=== PATIENT | female | born 1945 | race Caucasian/White ===

== ENCOUNTER 2018-03-10 00:48 | Observation (INO) | payer MEDICARE ==
[2018-03-10 04:03] VITALS: BMI 25.4
[2018-03-10] MEDS ORDERED: IPRATROPIUM-ALBUTEROL 3 ML NEB INHALATION PRN (04:36)
[2018-03-10] MEDS ORDERED: INFLUENZA VACCINE (6 MOS+) 60 MCG/0.5 ML SYRINGE IM ONE (04:38)
[2018-03-10] MEDS ORDERED: HEPARIN SODIUM,PORCINE 5,000 UNIT/ML 1 ML VIAL IV PRN (04:39)
[2018-03-10] MEDS ORDERED: HEPARIN SODIUM,PORCINE 5,000 UNIT/ML 1 ML VIAL IV ONE (04:39)
[2018-03-10] MEDS ORDERED: HEPARIN SOD,PORK IN 0.45% NACL 25,000 UNIT in 0.45% NACL 1 500ML.BAG IV SCH (04:45)
[2018-03-10] MEDS: HYDROcodone/APAP 5-325MG 1 EACH TAB PO PRN ×2 (05:29→19:52)
[2018-03-10 05:50] LABS: Anisocytosis Slight; Basophils % (A) 0 %; Eosinophils % (A) 0 %; HCT 31.4 % (34.0-46.0); HGB 10.3 gm/dL (11.4-16.0); Lymphocytes # (A) 0.5 k/uL (1.0-4.8); Lymphocytes % (A) 6 %; MCH 25.1 pg (25.0-35.0); MCHC 32.9 g/dL (31.0-37.0); MCV 76.1 fL (80.0-100.0); Microcytosis Slight; Monocytes # (A) 0.1 k/uL (0-1.0); Monocytes % (A) 1 %; Neutrophils # (A) 7.8 k/uL (1.3-7.7); Neutrophils % (A) 92 %; Platelet Count 264 k/uL (150-450); RBC 4.12 m/uL (3.80-5.40); RDW 16.3 % (11.5-15.5); WBC 8.5 k/uL (3.8-10.6)
[2018-03-10] MEDS ORDERED: LEVOFLOXACIN 500MG-D5W PMX 500 MG in DEXTROSE/WATER 1 100ML.BAG IVPB SCH ×2 (06:00→09:00)
[2018-03-10 06:01] LABS: Albumin 3.9 g/dL (3.5-5.0); Calcium 9.5 mg/dL (8.4-10.2); Potassium 4.2 mmol/L (3.5-5.1); Total Bilirubin 0.3 mg/dL (0.2-1.3); Total Protein 6.7 g/dL (6.3-8.2)
[2018-03-10 06:11] LABS: INR 1.1 (<1.2); Prothrombin Time 10.3 sec (9.0-12.0)
[2018-03-10 06:20] LABS: Creatine Kinase 208 U/L (30-135)
[2018-03-10 06:32] LABS: Creatine Kinase MB 1.3 ng/mL (0.0-2.4); Troponin I <0.012 ng/mL (0.000-0.034)
[2018-03-10 06:43] LABS: Glucose,Whole Blood 176 mg/dL (75-99)
[2018-03-10] MEDS: IPRATROPIUM-ALBUTEROL 3 ML NEB INHALATION SCH ×4 (07:29→18:53)
[2018-03-10] MEDS: methylPREDNISolone SOD SUCCI 125 MG/2 ML VIAL IV SCH ×2 (09:53→16:49)
[2018-03-10] MEDS: INSULIN ASPART 100 UNIT/ML 1 ML 10 ML VIAL SQ SCH ×4 (09:53→20:08)
--- NOTE | 2018-03-10 11:20 | P.CRDCN ---
History of Present Illness History of present illness: This is a pleasant 72-year-old female past medical history significant for hypertension, dyslipidemia, COPD. She denies history of coronary artery disease. She follows with Dr. Givens in the office. We have asked him in consultation for symptoms of chest pain. She was sent in from [facility] for symptoms of shortness of breath and chest discomfort. She states yesterday she was taking a shower and her daughters were helping her after getting out of the shower and sitting down she started feeling pain around her chest and the lower thoracic region the base of her ribs on both sides as well as in the middle of her back. She states the pain feels like someone is stabbing her in the back and it's radiating through to the front and then wrapping around her torso. She also felt acutely short of breath. She has oxygen at home that she wears only at night. She attempted to get her oxygen tank from her bedroom indicative milligrams she could sit down but it was too much work for her she was unable to drink the tank into her living room. She denies associated dizziness, nausea, vomiting or palpitations. EKG reveals sinus mechanism with first degree AVB. Chest xray obtained at [place] reveals blunted costophrenic angles with cardiomegaly and no acute cardiopulmonary process. Laboratory data reviewed, WBC 8.5, hgb 10.3, plt 264, sodium 142, potassium 4.2 , creatinine 0.95, cardiac enzymes negative x2, NTproBNP 200. Recent Lexiscan stress test obtained in the office 09/2017 was negative for reversible cardiac ischemia. At the time of my exam: CONSTITUTIONAL: Denies fever. Denies chills. EYES: Denies blurred vision. Denies vision changes. Denies eye pain. EARS, NOSE, MOUTH & THROAT: Denies headache. Denies sore throat. Denies ear pain. CARDIOVASCULAR: Denies chest pain. Complains of shortness of breath. Denies orthopnea. Denies PND. Denies palpitations. RESPIRATORY: Denies cough. GASTROINTESTINAL: Denies abdominal pain. Denies diarrhea. Denies constipation. Denies nausea. Denies vomiting. MUSCULOSKELETAL: Denies myalgias. INTEGUMENTARY: Denies pruitis. Denies rash. NEUROLOGIC: Denies numbness. Denies tingling. Denies weakness. PSYCHIATRIC: Denies anxiety. Denies depression. ENDOCRINE: Denies fatigue. Denies weight change. Denies polydipsia. Denies polyurina. GENITOURINARY: Denies burning, hematuria or urgency with micturation. HEMATOLOGIC: Denies history of anemia. Denies bleeding. Blood pressure 93/60 heart rate 96 afebrile maintaining oxygen saturation on nasal cannula GENERAL: This is a 72-year-old female in no apparent distress at the time of my examination. HEENT: Head is atraumatic, normocephalic. Pupils are equal, round. Sclerae anicteric. Conjunctivae are clear. Mucous membranes of the mouth are moist. Neck is supple. There is no jugular venous distention. No carotid bruit is heard. LUNGS: Expiratory wheezes noted throughout, no rales or rhonchi. No chest wall tenderness is noted on palpation or with deep breathing. HEART: Regular rate and rhythm without murmurs, rubs or gallops. S1 and S2 heard. ABDOMEN: Soft, nontender. Bowel sounds are heard. No organomegaly noted. EXTREMITIES: No evidence of peripheral edema and no calf tenderness noted. VASCULAR: Radial and dorsalis pedis pulses palpated, no evidence of clubbing. NEUROLOGIC: Patient is awake, alert and oriented x3. ASSESSMENT Chest pain, atypical with shortness of breath. Recent stress test in the office no evidence of reversible cardiac ischemia. COPD Hypertension Dyslipidemia PLAN Continue to obtain serial cardiac enzymes to rule out an acute event. Obtain 2-D echocardiogram and Doppler study to assess cardiac structure and function Ongoing medical management. Symptoms seem related to an exacerbation of chronic COPD and not angina. Follow-up with Dr. Givens upon discharge. Nurse Practitioner note has been reviewed, I agree with a documented findings and plan of care. Patient was seen and examined. Past Medical History Past Medical History: Asthma, Cancer, COPD, CVA/TIA, Deep Vein Thrombosis (DVT) , GERD/Reflux, Hyperlipidemia, Hypertension, Pneumonia Additional Past Medical History / Comment(s): 2004 CVA, chronic back pain, urinary incontinence, pt uses 2Lnc at [facility], per pt DVT in left leg in 2004, anemia History of Any Multi-Drug Resistant Organisms: None Reported Past Surgical History: Section, Cholecystectomy, Tonsillectomy, Tubal Ligation Additional Past Surgical History / Comment(s): removal of skin ca on nose, breast bx, left wrist surg with hardware, right ankle fx, right hip ORIF Past Anesthesia/Blood Transfusion Reactions: No Reported Reaction Past Psychological History: Depression Smoking Status: Never smoker Past Alcohol Use History: None Reported Past Drug Use History: None Reported - Past Family History Father Family Medical History: Myocardial Infarction ([place]) Additional Family Medical History / Comment(s): at age 50 from [place] Mother Family Medical History: Cancer Medications and Allergies Home Medications Medication Instructions Recorded Confirmed Type Atorvastatin [Lipitor] 20 mg PO HS 03/10/18 03/10/18 History Ergocalciferol (Vitamin D2) 50,000 unit PO WEEKLY 03/10/18 03/10/18 History [Drisdol] Hydrochlorothiazide [Hydrodiuril] 50 mg PO DAILY 03/10/18 03/10/18 History Montelukast [Singulair] 10 mg PO HS 03/10/18 03/10/18 History Omeprazole [PriLOSEC] 20 mg PO AC-BRKFST 03/10/18 03/10/18 History Oxybutynin Xl [Ditropan XL] 5 mg PO DAILY 03/10/18 03/10/18 History Allergies Allergy/AdvReac Type Severity Reaction Status Date / Time aspirin AdvReac Intermediate Dyspnea Verified 03/10/18 09:35 grass pollen AdvReac Dyspnea Verified 03/10/18 09:35 ibuprofen [From Motrin] AdvReac Dyspnea Verified 03/10/18 09:35 mold AdvReac Dyspnea Verified 03/10/18 09:35 orange AdvReac Dyspnea Verified 03/10/18 09:35 wheat AdvReac Rash/Hives Verified 03/10/18 09:35 Physical Exam Vitals: Vital Signs Temp Pulse Pulse Resp BP Pulse Ox 03/10/18 07:43 96 03/10/18 07:33 100 95 03/10/18 07:20 97.9 F 96 18 93/60 97 03/10/18 04:00 18 03/10/18 03:29 98.3 F 101 H 16 121/79 97 Intake and Output 03/09/18 03/10/18 03/10/18 22:59 06:59 14:59 Other: Voiding Method Toilet # Voids 3 Weight 58.9 kg Results 03/10/18 05:31 03/10/18 05:31 Cardiac Enzymes 03/10/18 03/10/18 03/10/18 Range/Units 05:31 05:31 05:31 WBC 8.5 (3.8-10.6) k/uL RBC 4.12 (3.80-5.40) m/uL Hgb 10.3 L (11.4-16.0) gm/dL Hct 31.4 L (34.0-46.0) % MCV 76.1 L (80.0-100.0) fL MCH 25.1 (25.0-35.0) pg MCHC 32.9 (31.0-37.0) g/dL RDW 16.3 H (11.5-15.5) % Plt Count 264 (150-450) k/uL Neutrophils % 92 % Lymphocytes % 6 % Monocytes % 1 % Eosinophils % 0 % Basophils % 0 % Neutrophils # 7.8 H (1.3-7.7) k/uL Lymphocytes # 0.5 L (1.0-4.8) k/uL Monocytes # 0.1 (0-1.0) k/uL Eosinophils # 0.0 (0-0.7) k/uL Basophils # 0.0 (0-0.2) k/uL Anisocytosis Slight Microcytosis Slight PT (9.0-12.0) sec INR (<1.2) APTT (22.0-30.0) sec Sodium 142 (137-145) mmol/L Potassium 4.2 (3.5-5.1) mmol/L Chloride 106 (98-107) mmol/L Carbon Dioxide 26 (22-30) mmol/L Anion Gap 10 mmol/L BUN 15 (7-17) mg/dL Creatinine 0.95 (0.52-1.04) mg/dL Est GFR (CKD-EPI)AfAm 70 (>60 ml/min/1.73 sqM) Est GFR (CKD-EPI)NonAf 60 (>60 ml/min/1.73 sqM) Glucose 153 H (74-99) mg/dL POC Glucose (mg/dL) (75-99) mg/dL POC Glu Fuller Brush Man ID Calcium 9.5 (8.4-10.2) mg/dL Total Bilirubin 0.3 (0.2-1.3) mg/dL AST 20 (14-36) U/L ALT 23 (9-52) U/L Alkaline Phosphatase 90 (38-126) U/L Total Creatine Kinase 208 H (30-135) U/L CK-MB (CK-2) 1.3 (0.0-2.4) ng/mL CK-MB (CK-2) Rel Index 0.6 Troponin I <0.012 (0.000-0.034) ng/mL Total Protein 6.7 (6.3-8.2) g/dL Albumin 3.9 (3.5-5.0) g/dL 03/10/18 03/10/18 Range/Units 05:31 06:39 WBC (3.8-10.6) k/uL RBC (3.80-5.40) m/uL Hgb (11.4-16.0) gm/dL Hct (34.0-46.0) % MCV (80.0-100.0) fL MCH (25.0-35.0) pg MCHC (31.0-37.0) g/dL RDW (11.5-15.5) % Plt Count (150-450) k/uL Neutrophils % % Lymphocytes % % Monocytes % % Eosinophils % % Basophils % % Neutrophils # (1.3-7.7) k/uL Lymphocytes # (1.0-4.8) k/uL Monocytes # (0-1.0) k/uL Eosinophils # (0-0.7) k/uL Basophils # (0-0.2) k/uL Anisocytosis Microcytosis PT 10.3 (9.0-12.0) sec INR 1.1 (<1.2) APTT 31.0 H (22.0-30.0) sec Sodium (137-145) mmol/L Potassium (3.5-5.1) mmol/L Chloride (98-107) mmol/L Carbon Dioxide (22-30) mmol/L Anion Gap mmol/L BUN (7-17) mg/dL Creatinine (0.52-1.04) mg/dL Est GFR (CKD-EPI)AfAm (>60 ml/min/1.73 sqM) Est GFR (CKD-EPI)NonAf (>60 ml/min/1.73 sqM) Glucose (74-99) mg/dL POC Glucose (mg/dL) 176 H (75-99) mg/dL POC Glu Fuller Brush Man ID Lynnette Luque Calcium (8.4-10.2) mg/dL Total Bilirubin (0.2-1.3) mg/dL AST (14-36) U/L ALT (9-52) U/L Alkaline Phosphatase (38-126) U/L Total Creatine Kinase (30-135) U/L CK-MB (CK-2) (0.0-2.4) ng/mL CK-MB (CK-2) Rel Index Troponin I (0.000-0.034) ng/mL Total Protein (6.3-8.2) g/dL Albumin (3.5-5.0) g/dL Coagulation 03/10/18 Range/Units 05:31 PT 10.3 (9.0-12.0) sec APTT 31.0 H (22.0-30.0) sec CBC 03/10/18 Range/Units 05:31 WBC 8.5 (3.8-10.6) k/uL RBC 4.12 (3.80-5.40) m/uL Hgb 10.3 L (11.4-16.0) gm/dL Hct 31.4 L (34.0-46.0) % Plt Count 264 (150-450) k/uL Comprehensive Metabolic Panel 03/10/18 Range/Units 05:31 Sodium 142 (137-145) mmol/L Potassium 4.2 (3.5-5.1) mmol/L Chloride 106 (98-107) mmol/L Carbon Dioxide 26 (22-30) mmol/L BUN 15 (7-17) mg/dL Creatinine 0.95 (0.52-1.04) mg/dL Glucose 153 H (74-99) mg/dL Calcium 9.5 (8.4-10.2) mg/dL AST 20 (14-36) U/L ALT 23 (9-52) U/L Alkaline Phosphatase 90 (38-126) U/L Total Protein 6.7 (6.3-8.2) g/dL Albumin 3.9 (3.5-5.0) g/dL Current Medications Generic Name Dose Route Start Last Admin Trade Name Freq PRN Reason Stop Dose Admin Hydrocodone Bitart/Acetaminophen 1 each 03/10/18 04:37 03/10/18 05:29 [place] 5-325 PO 1 each Q6HR PRN Administration Pain Albuterol/Ipratropium 3 ml 03/10/18 08:00 03/10/18 07:29 Duoneb 0.5 Mg-3 Mg/3 Ml Soln INHALATION 3 ml RT-QID AV Administration Albuterol/Ipratropium 3 ml 03/10/18 04:36 Duoneb 0.5 Mg-3 Mg/3 Ml Soln INHALATION RT-Q2H PRN Shortness Of Breath Or Wheezing Heparin Sodium (Porcine) 0 unit 03/10/18 04:39 Heparin IV PER PROTOCOL PRN Low PTT Protocol Levofloxacin 500 mg/ IV 100 mls @ 100 mls/hr 03/10/18 09:00 Solution IVPB Q24H [facility] Insulin Aspart 0 unit 03/10/18 07:30 Novolog SQ ACHS [facility] Protocol Methylprednisolone Sodium Succinate 60 mg 03/10/18 08:00 Solu-Medrol IV Q8HR [facility] Intake and Output 03/09/18 03/10/18 03/10/18 22:59 06:59 14:59 Other: Voiding Method Toilet # Voids 3 Weight 58.9 kg 03/10/18 05:31 03/10/18 05:31
--- NOTE | 2018-03-10 11:27 | ECHOF ---
Referral Reason:sob MEASUREMENTS -------- HEIGHT: 152.4 cm WEIGHT: 58.5 kg BP: 93/60 RVIDd: 2.1 cm (< 3.3) IVSd: 0.8 cm (0.6 - 1.1) LVIDd: 3.2 cm (3.9 - 5.3) LVPWd: 1.1 cm (0.6 - 1.1) IVSs: 1.9 cm LVIDs: 1.9 cm LVPWs: 1.4 cm Ao Diam: 2.8 cm (2.0 - 3.7) AV Cusp: 1.3 cm (1.5 - 2.6) LA Diam: 3.6 cm (2.7 - 3.8) MV E Wiliam: 1.03 m/s MV DecT: 89 ms MV A Wiliam: 0.30 m/s MV E/A Ratio: 3.43 AV maxP.64 mmHg AV meanP.12 mmHg RAP: 5.00 mmHg RVSP: 12.42 mmHg FINDINGS -------- Sinus rhythm. This was a technically difficult study with suboptimal views. The left ventricular size is normal. Left ventricular wall thickness is normal. Overall left vent ricular systolic function is normal with, an EF between 55 - 60 %. The right ventricular wall thickness is normal measuring < 5mm. The left atrium is normal in size. The right atrium is normal in size. Lumason used There is mild aortic valve sclerosis. The mitral valve leaflets are mildly thickened. Mild mitral regurgitation is present. Mild tricuspid regurgitation present. There is no evidence of pulmonary hypertension. The right v entricular systolic pressure, as measured by Doppler, is 12.42mmHg. The pulmonic valve was not well visualized. The aortic root size is normal. There is no pericardial effusion. CONCLUSIONS -------- 1. Sinus rhythm. 2. This was a technically difficult study with suboptimal views. 3. The left ventricular size is normal. 4. Left ventricular wall thickness is normal. 5. Overall left ventricular systolic function is normal with, an EF between 55 - 60 %. 6. The left atrium is normal in size. 7. Lumason used 8. There is mild aortic valve sclerosis. 9. The mitral valve leaflets are mildly thickened. 10. Mild mitral regurgitation is present. 11. Mild tricuspid regurgitation present. 12. There is no evidence of pulmonary hypertension. 13. The pulmonic valve was not well visualized. 14. The aortic root size is normal. 15. There is no pericardial effusion. MEDICAL REIMBURSEMENT SPECIALIST: Tonie Bravo RDCS
[2018-03-10 11:55] LABS: Glucose,Whole Blood 170 mg/dL (75-99)
[2018-03-10 12:52] LABS: Creatine Kinase 229 U/L (30-135)
[2018-03-10 13:05] LABS: Creatine Kinase MB 1.3 ng/mL (0.0-2.4); Troponin I <0.012 ng/mL (0.000-0.034)
--- NOTE | 2018-03-10 13:18 | P.CNPUL ---
History of Present Illness Consult date: 03/10/18 Reason for consult: chest pain, COPD History of present illness: A pleasant 70-year-old female patient who has been followed up without pulmonary services for COPD and she is seen at the [place] office by Dr. Dot blevins. The patient also has history of hypertension and hyperlipidemia. No known history of coronary artery disease. The patient came in yesterday because of increased shortness of breath, wheezing and chest pain. The pain was rather nonspecific across her anterior chest lower chest and the back. 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 She was having some increased dyspnea wheezing. Her symptoms were noted especially with activity and exertion. No pleurisy. No hemoptysis. No reported fever chills or night sweats. The patient's pain was in the front and in the mid lower thoracic spine. She reported stabbing sensation. Noted the patient has COPD. She is oxygen dependent only at nighttime. She has been using a combination of budesonide on Pulmicort neb last treatment twice a day. Her recent Lexiscan stress test that was done and a cardiology office in September 2017 was negative for any reversible ischemia. Her renal function with a creatinine of 0.95. 2 sets of troponins of been negative. BNP level was 200. Hemoglobin was attempted 0.3 with a white cell count of 8.5. Chest x-ray that was done [facility] showed some mild cardiomegaly and there was no acute cardio pulmonary process. The patient is hemodynamically stable and she is currently resting comfortably in bed. Review of Systems Constitutional: Denies chills, Denies fever Eyes: denies blurred vision, denies bulging eye, denies decreased vision Ears: bilateral: decreased hearing, deny: ear discharge, earache, tinnitus Ears, nose, mouth and throat: Denies headache, Denies sore throat Cardiovascular: Reports chest pain, Reports decreased exercise tolerance Respiratory: Reports cough, Reports dyspnea, Reports wheezing Gastrointestinal: Denies abdominal pain, Denies diarrhea, Denies nausea, Denies vomiting Genitourinary: Denies dysuria, Denies hematuria Menstruation: Reports as per HPI Musculoskeletal: absent: ankle pain, ankle stiffness, ankle swelling Integumentary: Denies pruritus, Denies rash Neurological: Denies numbness, Denies weakness Psychiatric: Reports as per HPI Endocrine: Reports as per HPI Hematologic/Lymphatic: Reports as per HPI Allergic/Immunologic: Reports as per HPI Past Medical History Past Medical History: Asthma, Cancer, COPD, CVA/TIA, Deep Vein Thrombosis (DVT) , GERD/Reflux, Hyperlipidemia, Hypertension, Pneumonia Additional Past Medical History / Comment(s): COPD, bronchial asthma, previous history of CVA 2004, hypertension, hyperlipidemia, remote history of a left lower extremity DVT in 2004, chronic anemia, urinary incontinence, chronic back pain, osteoporosis, acid reflux, chronic hypoxic respiratory failure patient uses oxygen only overnight. History of Any Multi-Drug Resistant Organisms: None Reported Past Surgical History: Section, Cholecystectomy, Tonsillectomy, Tubal Ligation Additional Past Surgical History / Comment(s): removal of skin ca on nose, breast bx, left wrist surg with hardware, right ankle fx, right hip ORIF Past Anesthesia/Blood Transfusion Reactions: No Reported Reaction Past Psychological History: Depression Smoking Status: Never smoker Past Alcohol Use History: None Reported Past Drug Use History: None Reported - Past Family History Father Family Medical History: Myocardial Infarction ([place]) Additional Family Medical History / Comment(s): at age 50 from [place] Mother Family Medical History: Cancer Medications and Allergies Home Medications Medication Instructions Recorded Confirmed Type Atorvastatin [Lipitor] 20 mg PO HS 03/10/18 03/10/18 History Ergocalciferol (Vitamin D2) 50,000 unit PO WEEKLY 03/10/18 03/10/18 History [Drisdol] Hydrochlorothiazide [Hydrodiuril] 50 mg PO DAILY 03/10/18 03/10/18 History Montelukast [Singulair] 10 mg PO HS 03/10/18 03/10/18 History Omeprazole [PriLOSEC] 20 mg PO AC-BRKFST 03/10/18 03/10/18 History Oxybutynin Xl [Ditropan XL] 5 mg PO DAILY 03/10/18 03/10/18 History Allergies Allergy/AdvReac Type Severity Reaction Status Date / Time aspirin AdvReac Intermediate Dyspnea Verified 03/10/18 09:35 grass pollen AdvReac Dyspnea Verified 03/10/18 09:35 ibuprofen [From Motrin] AdvReac Dyspnea Verified 03/10/18 09:35 mold AdvReac Dyspnea Verified 03/10/18 09:35 orange AdvReac Dyspnea Verified 03/10/18 09:35 wheat AdvReac Rash/Hives Verified 03/10/18 09:35 Physical Exam Vitals: Vital Signs Temp Pulse Pulse Resp BP Pulse Ox 03/10/18 11:30 97.7 F 106 H 18 109/71 96 03/10/18 10:47 104 H 03/10/18 10:36 100 03/10/18 07:43 96 03/10/18 07:33 100 95 03/10/18 07:20 97.9 F 96 18 93/60 97 03/10/18 04:00 18 03/10/18 03:29 98.3 F 101 H 16 121/79 97 Intake and Output 03/09/18 03/10/18 03/10/18 22:59 06:59 14:59 Other: Voiding Method Toilet Toilet # Voids 3 Weight 58.9 kg Appearance she is calm comfortable likely distress Head exam was generally normal. There was no scleral icterus or corneal arcus. Mucous membranes were moist. Neck was supple and without jugular venous distension, thyromegaly, or carotid bruits. Carotids were easily palpable bilaterally. There was no adenopathy. Lungs sounds are diminished bilaterally along with scattered expiratory wheezes throughout the lung gaytan bilaterally and prolongation of expiratory phase of breathing Cardiac exam revealed the PMI to be normally situated and sized. The rhythm was regular and no extrasystoles were noted during several minutes of auscultation. The first and second heart sounds were normal and physiologic splitting of the second heart sound was noted. There were no murmurs, rubs, clicks, or gallops. Abdominal exam revealed normal bowel sounds. The abdomen was soft, non-tender, and without masses, organomegaly, or appreciable enlargement of the abdominal aorta. Examination of the extremities revealed easily palpable radial, femoral and pedal pulses. There was no cyanosis, clubbing or edema. Examination of the skin revealed no evidence of significant rashes, suspicious appearing nevi or other concerning lesions. Neurologically she is awake and alert and there is no focal neurological deficit. Results - Laboratory Findings CBC and BMP: 03/10/18 05:31 12 05:31 PT/INR, D-dimer PT 10.3 sec (9.0-12.0) 03/10/18 05:31 INR 1.1 (<1.2) 03/10/18 05:31 Abnormal lab findings: Abnormal Labs 03/10/18 03/10/18 03/10/18 05:31 05:31 05:31 Hgb 10.3 L Hct 31.4 L MCV 76.1 L RDW 16.3 H Neutrophils # 7.8 H Lymphocytes # 0.5 L APTT Glucose 153 H POC Glucose (mg/dL) Total Creatine Kinase 208 H 03/10/18 03/10/18 03/10/18 05:31 06:39 11:51 Hgb Hct MCV RDW Neutrophils # Lymphocytes # APTT 31.0 H Glucose POC Glucose (mg/dL) 176 H 170 H Total Creatine Kinase 03/10/18 12:12 Hgb Hct MCV RDW Neutrophils # Lymphocytes # APTT Glucose POC Glucose (mg/dL) Total Creatine Kinase 229 H Assessment and Plan Plan: Assessment 1 acute COPD exacerbation with secondary bronchospasm wheezing and shortness of breath. Chest x-ray was free of any acute pulmonary for place. 2 chest pain, atypical for cardiac disease and a cardiac event is a been negative and the patient had a negative stress test in September 2017 and echocardiogram is essentially within normal limits. 3 hypertension 4 hyperlipidemia 5 remote history of DVT in 2004 6 remote history of CVA 7 chronic back pain/osteoporosis 8 chronic hypoxic respiratory failure and the patient is oxygen overnight Plan Continue treatment of an acute COPD exacerbation with a combination of DuoNeb nebulized tube is in IV Solu-Medrol. Empiric antibiotic coverage. CT angios the chest will be needed to we'll characterize further the chest pain that was intermittent and lower chest radiating to her back. This is most likely an atypical and nonspecific pain. Based on her previous history of DVT would like to obtain a CT angios the chest to make sure there is no underlying filling defects of pulmonary embolism. This will be a good opportunity to evaluate her aortic anatomy rule out any dissection or any other pathology. We'll continue to follow.
--- NOTE | 2018-03-10 15:55 | P.HPIM ---
History of Present Illness 70-year-old female with history of COPD came in with chest pain pleuritic in nature. Denied any significant cough. Patient has 8/10 severe chest pain patient was evaluated by cardiology patient ruled out acute concurrent syndromes. Patient does not have any pneumonia on the chest x-ray. Pulmonology valid the patient is that they are recommending CT of the chest to rule out pulmonary embolism which was ordered. Patient was started on systemic steroids for wheezing and possible bronchitis Patient was evaluated by cardiology obtain an echocardiogram which did not show any significant abnormality the cleared her for discharge and cardiology perspective patient has increased dyspnea and wheezing denied any orthopnea proximal nocturnal dyspnea patient had compression fractures of the thoracic spine. Patient was started on levofloxacin for bronchitis Review of Systems REVIEW OF SYSTEMS: CONSTITUTIONAL: No fever, no malaise, no fatigue. HEENT: No recent visual problems or hearing problems. Denied any sore throat. CARDIOVASCULAR: No chest pain, orthopnea, PND, no palpitations, no syncope. PULMONARY: No shortness of breath, no cough, no hemoptysis. GASTROINTESTINAL: No diarrhea, no nausea, no vomiting, no abdominal pain. Normoactive bowel sounds. NEUROLOGICAL: No headaches, no weakness, no numbness. HEMATOLOGICAL: Denies any bleeding or petechiae. GENITOURINARY: Denies any burning micturition, frequency, or urgency. MUSCULOSKELETAL/RHEUMATOLOGICAL: Denies any joint pain, swelling, or any muscle pain. ENDOCRINE: Denies any polyuria or polydipsia. The rest of the 14-point review of systems is negative. Past Medical History Past Medical History: Asthma, Cancer, COPD, CVA/TIA, Deep Vein Thrombosis (DVT) , GERD/Reflux, Hyperlipidemia, Hypertension, Pneumonia Additional Past Medical History / Comment(s): COPD, bronchial asthma, previous history of CVA 2004, hypertension, hyperlipidemia, remote history of a left lower extremity DVT in 2004, chronic anemia, urinary incontinence, chronic back pain, osteoporosis, acid reflux, chronic hypoxic respiratory failure patient uses oxygen only overnight. History of Any Multi-Drug Resistant Organisms: None Reported Past Surgical History: Section, Cholecystectomy, Tonsillectomy, Tubal Ligation Additional Past Surgical History / Comment(s): removal of skin ca on nose, breast bx, left wrist surg with hardware, right ankle fx, right hip ORIF Past Anesthesia/Blood Transfusion Reactions: No Reported Reaction Past Psychological History: Depression Smoking Status: Never smoker Past Alcohol Use History: None Reported Past Drug Use History: None Reported - Past Family History Father Family Medical History: Myocardial Infarction ([place]) Additional Family Medical History / Comment(s): at age 50 from [place] Mother Family Medical History: Cancer Medications and Allergies Home Medications Medication Instructions Recorded Confirmed Type Atorvastatin [Lipitor] 20 mg PO HS 03/10/18 03/10/18 History Ergocalciferol (Vitamin D2) 50,000 unit PO WEEKLY 03/10/18 03/10/18 History [Drisdol] Hydrochlorothiazide [Hydrodiuril] 50 mg PO DAILY 03/10/18 03/10/18 History Montelukast [Singulair] 10 mg PO HS 03/10/18 03/10/18 History Omeprazole [PriLOSEC] 20 mg PO AC-BRKFST 03/10/18 03/10/18 History Oxybutynin Xl [Ditropan XL] 5 mg PO DAILY 03/10/18 03/10/18 History Allergies Allergy/AdvReac Type Severity Reaction Status Date / Time aspirin AdvReac Intermediate Dyspnea Verified 03/10/18 09:35 grass pollen AdvReac Dyspnea Verified 03/10/18 09:35 ibuprofen [From Motrin] AdvReac Dyspnea Verified 03/10/18 09:35 mold AdvReac Dyspnea Verified 03/10/18 09:35 orange AdvReac Dyspnea Verified 03/10/18 09:35 wheat AdvReac Rash/Hives Verified 03/10/18 09:35 Physical Exam Vitals: Vital Signs Temp Pulse Pulse Resp BP Pulse Ox 03/10/18 15:00 102 H 03/10/18 14:51 106 H 03/10/18 11:30 97.7 F 106 H 18 109/71 96 03/10/18 10:47 104 H 03/10/18 10:36 100 03/10/18 07:43 96 03/10/18 07:33 100 95 03/10/18 07:20 97.9 F 96 18 93/60 97 03/10/18 04:00 18 03/10/18 03:29 98.3 F 101 H 16 121/79 97 Intake and Output 03/10/18 03/10/18 03/10/18 06:59 14:59 22:59 Other: Voiding Method Toilet Toilet # Voids 3 Weight 58.9 kg PHYSICAL EXAMINATION: GENERAL: The patient is alert and oriented x3, not in any acute distress. Well developed, well nourished. HEENT: Pupils are round and equally reacting to light. EOMI. No scleral icterus. No conjunctival pallor. Normocephalic, atraumatic. No pharyngeal erythema. No thyromegaly. CARDIOVASCULAR: S1 and S2 present. No murmurs, rubs, or gallops. PULMONARY: Patient has good air entry but does have expiratory wheeze ABDOMEN: Soft, nontender, nondistended, normoactive bowel sounds. No palpable organomegaly. MUSCULOSKELETAL: No joint swelling or deformity. EXTREMITIES: No cyanosis, clubbing, or pedal edema. NEUROLOGICAL: Gross neurological examination did not reveal any focal deficits. SKIN: No rashes. Results CBC & Chem 7: 03/10/18 05:31 03/10/18 05:31 Labs: Abnormal Lab Results - Last 24 Hours (Table) 03/10/18 03/10/18 03/10/18 Range/Units 05:31 05:31 05:31 Hgb 10.3 L (11.4-16.0) gm/dL Hct 31.4 L (34.0-46.0) % MCV 76.1 L (80.0-100.0) fL RDW 16.3 H (11.5-15.5) % Neutrophils # 7.8 H (1.3-7.7) k/uL Lymphocytes # 0.5 L (1.0-4.8) k/uL APTT (22.0-30.0) sec Glucose 153 H (74-99) mg/dL POC Glucose (mg/dL) (75-99) mg/dL Total Creatine Kinase 208 H (30-135) U/L 03/10/18 03/10/18 03/10/18 Range/Units 05:31 06:39 11:51 Hgb (11.4-16.0) gm/dL Hct (34.0-46.0) % MCV (80.0-100.0) fL RDW (11.5-15.5) % Neutrophils # (1.3-7.7) k/uL Lymphocytes # (1.0-4.8) k/uL APTT 31.0 H (22.0-30.0) sec Glucose (74-99) mg/dL POC Glucose (mg/dL) 176 H 170 H (75-99) mg/dL Total Creatine Kinase (30-135) U/L 03/10/18 Range/Units 12:12 Hgb (11.4-16.0) gm/dL Hct (34.0-46.0) % MCV (80.0-100.0) fL RDW (11.5-15.5) % Neutrophils # (1.3-7.7) k/uL Lymphocytes # (1.0-4.8) k/uL APTT (22.0-30.0) sec Glucose (74-99) mg/dL POC Glucose (mg/dL) (75-99) mg/dL Total Creatine Kinase 229 H (30-135) U/L Thrombosis Risk Factor Assmnt - Choose All That Apply Each Factor Represents 1 point: Abnormal pulmonary function (COPD), Obesity ( BMI >25) Each Risk Factor Represents 2 Points: Age 61-74 years Thrombosis Risk Factor Assessment Total Risk Factor Score: 4 Thrombosis Risk Factor Assessment Level: Moderate Risk Assessment and Plan Plan: -COPD exacerbation: Patient is an above-mentioned antibiotics patient is on systemic steroids inhalational treatments although patient never smoked was exposed to cigarette smoke as an outpatient -Chest pain atypical pleuritic in nature rule out pulmonary embolism -Hypertension -Hyperlipidemia -History of DVT in the past -History of CVA in the past -Chronic low back pain with 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
--- NOTE | 2018-03-10 16:10 | CT ---
EXAMINATION TYPE: CT chest angio for PE DATE OF EXAM: 03/10/2018 COMPARISON: HISTORY: Chest pain and SOB CT DLP: 223 mGycm CONTRAST: CT chest with contrast and 3D reconstruction with MIP imaging is performed with IV Contrast, patient injected with 100 mL of Isovue 370. Contrast-enhanced CT of the chest was performed through the course of the pulmonary arteries with heather g and mediastinal window settings submitted. 3D reconstruction with MIP imaging was also performed. PULMONARY ARTERIES: The pulmonary arteries and their major tributaries are patent. I do not see gold dence for sizable filling defect to suggest pulmonary embolic process. LUNGS: There is left lower lobe collapse noted with a left lower lobe bronchial obstruction. Consider endoscopic visualization. Mild dependent atelectasis right lung base. MEDIASTINUM: Thoracic aorta is of normal caliber,however, evaluation is limited given timing of the contrast bolus. If there is concern for thoracic aortic pathology consider JULIANN. Correlate clinicall y . The heart is not enlarged. No evidence for mediastinal mass. No mediastinal lymph nodes greater than 1cm. Large fixed hiatal hernia detected. HILAR STRUCTURES: No evidence for mass. No hilar lymph nodes greater than 1 cm. UPPER ABDOMEN: No significant abnormality is seen. IMPRESSION: 1. No evidence for Pulmonary embolism at this time. 2. Left lower lobe collapse with endobronchial narrowing. Consider endoscopic evaluation.
[2018-03-10 16:27] LABS: Hemoglobin A1C 5.7 % (4.0-6.0)
[2018-03-10 16:50] LABS: Glucose,Whole Blood 152 mg/dL (75-99)
[2018-03-10 20:00] LABS: Glucose,Whole Blood 242 mg/dL (75-99)
[2018-03-10] MEDS ORDERED: ATORVASTATIN 20 MG TAB PO SCH (21:00)
[2018-03-10] MEDS ORDERED: MONTELUKAST 10 MG TAB PO SCH (21:00)
[2018-03-11] MEDS: methylPREDNISolone SOD SUCCI 125 MG/2 ML VIAL IV SCH ×3 (00:50→16:22)
[2018-03-11] MEDS: HYDROcodone/APAP 5-325MG 1 EACH TAB PO PRN (00:55)
[2018-03-11] MEDS: BENZOCAINE/MENTHOL LOZENG 1 EACH LOZENGE MUCOUS MEM PRN ×2 (05:38→10:38)
[2018-03-11 06:35] LABS: Glucose,Whole Blood 170 mg/dL (75-99)
[2018-03-11] MEDS: IPRATROPIUM-ALBUTEROL 3 ML NEB INHALATION SCH ×3 (07:28→15:04)
[2018-03-11] MEDS ORDERED: PANTOPRAZOLE 40 MG TABLET PO SCH (07:30)
[2018-03-11 07:46] VITALS: BP 116/73; RESP 18; TEMP 97.8
[2018-03-11] MEDS: INSULIN ASPART 100 UNIT/ML 1 ML 10 ML VIAL SQ SCH ×2 (07:56→12:09)
[2018-03-11] MEDS ORDERED: OXYBUTYNIN XL 5 MG TAB.ER.24 PO SCH (09:00)
[2018-03-11] MEDS ORDERED: HYDROCHLOROTHIAZIDE 50 MG TAB PO SCH (09:00)
[2018-03-11] MEDS ORDERED: LEVOFLOXACIN 250 MG TAB PO SCH (09:00)
[2018-03-11 09:28] LABS: Anisocytosis Slight; Basophils % (A) 0 %; Eosinophils # (A) 0.1 k/uL (0-0.7); Eosinophils % (A) 0 %; HCT 33.3 % (34.0-46.0); HGB 10.9 gm/dL (11.4-16.0); Hypochromasia Slight; Lymphocytes % (A) 6 %; MCH 25.9 pg (25.0-35.0); MCHC 32.9 g/dL (31.0-37.0); MCV 78.6 fL (80.0-100.0); Mean Platelet Volume 6.9; Microcytosis Slight; Monocytes # (A) 0.3 k/uL (0-1.0); Monocytes % (A) 2 %; Neutrophils # (A) 14.5 k/uL (1.3-7.7); Neutrophils % (A) 91 %; Platelet Count 318 k/uL (150-450); RBC 4.23 m/uL (3.80-5.40); RDW 16.5 % (11.5-15.5); WBC 15.9 k/uL (3.8-10.6)
[2018-03-11 11:50] LABS: Glucose,Whole Blood 151 mg/dL (75-99)
[2018-03-11 12:18] VITALS: PULSE 99
--- NOTE | 2018-03-11 14:46 | P.PN ---
Subjective Progress Note Date: 03/11/18 A pleasant 70-year-old female patient who has been followed up without pulmonary services for COPD and she is seen at the [place] office by Dr. Dot blevins. The patient also has history of hypertension and hyperlipidemia. No known history of coronary artery disease. The patient came in yesterday because of increased shortness of breath, wheezing and chest pain. The pain was rather nonspecific across her anterior chest lower chest and the back. 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 She was having some increased dyspnea wheezing. Her symptoms were noted especially with activity and exertion. No pleurisy. No hemoptysis. No reported fever chills or night sweats. The patient's pain was in the front and in the mid lower thoracic spine. She reported stabbing sensation. Noted the patient has COPD. She is oxygen dependent only at nighttime. She has been using a combination of budesonide on Pulmicort neb last treatment twice a day. Her recent Lexiscan stress test that was done and a cardiology office in September 2017 was negative for any reversible ischemia. Her renal function with a creatinine of 0.95. 2 sets of troponins of been negative. BNP level was 200. Hemoglobin was attempted 0.3 with a white cell count of 8.5. Chest x-ray that was done [facility] showed some mild cardiomegaly and there was no acute cardio pulmonary process. The patient is hemodynamically stable and she is currently resting comfortably in bed. On 03/11/2008 and I'm seeing this patient for a follow-up. She is less bronchus spastic and wheezy compared to yesterday. She is less short of breath. No significant chest pain. She is really of pain for now. No fever. No chills. No hemoptysis. No pleurisy. CAT scan of the chest was done and did not show any evidence of pulmonary embolism. There was some limited atelectatic changes and left lower lobe. No endobronchial lesions based on the CAT scan findings. She has no hemoptysis. She has no aspiration. She is on DuoNeb nebulized treatments around the clock. She is also on IV Solu Medrol 60 mg every 8 hours. Objective - Vital Signs Vital signs: Vital Signs Temp 97.8 F 03/11/18 07:15 Pulse 99 03/11/18 12:00 Resp 18 03/11/18 12:00 BP 116/73 03/11/18 07:15 Pulse Ox 95 03/11/18 07:15 Intake & Output 03/10/18 03/11/18 03/11/18 18:59 06:59 18:59 Intake Total 436 300 Balance 436 300 Intake: Oral 436 300 Other: Voiding Method Toilet Toilet Toilet # Voids 2 - Exam Appearance she is calm comfortable likely distress Head exam was generally normal. There was no scleral icterus or corneal arcus. Mucous membranes were moist. Neck was supple and without jugular venous distension, thyromegaly, or carotid bruits. Carotids were easily palpable bilaterally. There was no adenopathy. Lungs sounds are diminished bilaterally along with scattered expiratory wheezes throughout the lung gaytan bilaterally and prolongation of expiratory phase of breathing. Overall bronchospasm wheezing improved compared to yesterday as the patient is being treated with systemic steroids. The patient has a barrel chest. She also has thoracic kyphosis. Cardiac exam revealed the PMI to be normally situated and sized. The rhythm was regular and no extrasystoles were noted during several minutes of auscultation. The first and second heart sounds were normal and physiologic splitting of the second heart sound was noted. There were no murmurs, rubs, clicks, or gallops. Abdominal exam revealed normal bowel sounds. The abdomen was soft, non-tender, and without masses, organomegaly, or appreciable enlargement of the abdominal aorta. Examination of the extremities revealed easily palpable radial, femoral and pedal pulses. There was no cyanosis, clubbing or edema. Examination of the skin revealed no evidence of significant rashes, suspicious appearing nevi or other concerning lesions. Neurologically she is awake and alert and there is no focal neurological deficit. - Labs CBC & Chem 7: 03/11/18 09:03 03/10/18 05:31 Labs: Abnormal Lab Results - Last 24 Hours (Table) 03/10/18 03/10/18 03/11/18 Range/Units 16:36 19:56 06:33 WBC (3.8-10.6) k/uL Hgb (11.4-16.0) gm/dL Hct (34.0-46.0) % MCV (80.0-100.0) fL RDW (11.5-15.5) % Neutrophils # (1.3-7.7) k/uL POC Glucose (mg/dL) 152 H 242 H 170 H (75-99) mg/dL 03/11/18 03/11/18 Range/Units 09:03 11:44 WBC 15.9 H (3.8-10.6) k/uL Hgb 10.9 L (11.4-16.0) gm/dL Hct 33.3 L (34.0-46.0) % MCV 78.6 L (80.0-100.0) fL RDW 16.5 H (11.5-15.5) % Neutrophils # 14.5 H (1.3-7.7) k/uL POC Glucose (mg/dL) 151 H (75-99) mg/dL Assessment and Plan Plan: Assessment 1 acute COPD exacerbation with secondary bronchospasm wheezing and shortness of breath. CT abdomen chest shows no evidence of any pulmonary embolism. There is some limited left lower lobe atelectatic change. 2 chest pain, atypical for cardiac disease and a cardiac event is a been negative and the patient had a negative stress test in September 2017 and echocardiogram is essentially within normal limits. 3 hypertension 4 hyperlipidemia 5 remote history of DVT in 2004 6 remote history of CVA 7 chronic back pain/osteoporosis 8 chronic hypoxic respiratory failure and the patient is oxygen overnight Plan Clinically the patient is improving. Continue bronchodilators. Continue steroids and transitioned this patient a prednisone burst taper. Review the CT of the chest. No evidence of pulmonary embolism. Limited atelectasis and left lung base which is expected to improve at a later stage with deep breathing. Doubt any endobronchial involvement with tumor or malignancy. We'll continue to follow.
--- NOTE | 2018-03-11 16:03 | P.DS ---
Providers Date of admission: 03/10/18 02:49 Attending physician: Agapito Chan Consults: 03/10/18 03:22 Consult Physician Routine Consulting Provider: [facility] Reason/Comments: chest pain Do you want consulting provider notified?: Yes, Notify in am Placement Type Exists?: Yes 03/10/18 04:35 Consult Physician Routine Consulting Provider: Angel Quiroz Reason/Comments: copd - pt known to you Do you want consulting provider notified?: Yes, Notify in am Primary care physician: Stated None Hospital Course: Patient is admitted for chest pain rule out acute medicine syndromes rule out pulmonary embolism patient was evaluated by pulmonology and cardiology. Patient was also treated for COPD exacerbation. Patient will be discharged today on weaning dose of steroids and oxygen for bronchitis PHYSICAL EXAMINATION: GENERAL: The patient is alert and oriented x3, not in any acute distress. Well developed, well nourished. HEENT: Pupils are round and equally reacting to light. EOMI. No scleral icterus. No conjunctival pallor. Normocephalic, atraumatic. No pharyngeal erythema. No thyromegaly. CARDIOVASCULAR: S1 and S2 present. No murmurs, rubs, or gallops. PULMONARY: Chest is clear to auscultation, no wheezing or crackles. ABDOMEN: Soft, nontender, nondistended, normoactive bowel sounds. No palpable organomegaly. MUSCULOSKELETAL: No joint swelling or deformity. EXTREMITIES: No cyanosis, clubbing, or pedal edema. NEUROLOGICAL: Gross neurological examination did not reveal any focal deficits. SKIN: No rashes. 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 Plan - Discharge Summary Discharge Rx Participant: No New Discharge Prescriptions: New Doxycycline Monohydrate [Monodox] 100 mg PO BID 3 Days #6 cap predniSONE 10 mg PO DAILY #30 tab Discontinued Hydrochlorothiazide [Hydrodiuril] 50 mg PO DAILY No Action Omeprazole [PriLOSEC] 20 mg PO AC-BRKFST Montelukast [Singulair] 10 mg PO HS Oxybutynin Xl [Ditropan XL] 5 mg PO DAILY Atorvastatin [Lipitor] 20 mg PO HS Ergocalciferol (Vitamin D2) [Drisdol] 50,000 unit PO WEEKLY Discharge Medication List Atorvastatin [Lipitor] 20 mg PO HS 03/10/18 [History] Ergocalciferol (Vitamin D2) [Drisdol] 50,000 unit PO WEEKLY 03/10/18 [History] Montelukast [Singulair] 10 mg PO HS 03/10/18 [History] Omeprazole [PriLOSEC] 20 mg PO AC-BRKFST 03/10/18 [History] Oxybutynin Xl [Ditropan XL] 5 mg PO DAILY 03/10/18 [History] Doxycycline Monohydrate [Monodox] 100 mg PO BID 3 Days #6 cap 03/11/18 [Rx] predniSONE 10 mg PO DAILY #30 tab 03/11/18 [Rx] Follow up Appointment(s)/Referral(s): Bryant Givens MD [STAFF PHYSICIAN] - 3 Weeks (Appointment made for Apr.03 @ 2:15pm at the [place] Office.) Discharge Disposition: HOME SELF-CARE
[2018-03-17] MEDS ORDERED: ERGOCALCIFEROL 50,000 UNIT CAP PO SCH (09:00)
== END 2018-03-11 17:30 | disposition home or self-care (01) ==
LOC: 1SOBS 02:49
PROVIDERS: ADMIT Internal Medicine; ATTEND Internal Medicine
DX: J44.1 Chronic obstructive pulmonary disease with (acute) exacerbation (principal); E78.5 Hyperlipidemia, unspecified; M80.08XA Age-related osteoporosis with current pathological fracture, vertebra(e), initial encounter for fracture; Z99.81 Dependence on supplemental oxygen; R07.89 Other chest pain; F32.9 Major depressive disorder, single episode, unspecified; I11.9 Hypertensive heart disease without heart failure; I44.0 Atrioventricular block, first degree; J96.11 Chronic respiratory failure with hypoxia; K21.9 Gastro-esophageal reflux disease without esophagitis; R32 Unspecified urinary incontinence; Z86.718 Personal history of other venous thrombosis and embolism; Z86.73 Personal history of transient ischemic attack (TIA), and cerebral infarction without residual deficits; Z82.49 Family history of ischemic heart disease and other diseases of the circulatory system; Z79.899 Other long term (current) drug therapy; Z88.6 Allergy status to analgesic agent; Z91.018 Allergy to other foods; Z77.22 Contact with and (suspected) exposure to environmental tobacco smoke (acute) (chronic)
CPT/HCPCS: 96365; 96366; 96367; 96375; 96376 ×2; 94640 ×4; 94760; 83880; 80053; 82550; 82553; 84484; 85025 ×2; 85610; 85730; 83036; 71275; 90686; G0378 ×2; G0379; C8929; G0008; J1644 ×2; J2930 ×2; J1956; Q9950; Q9967; 93005; 93306